=== PATIENT | female | born 1980 | race Two or more races ===

== ENCOUNTER → 2024-02-23 | Outpatient (CLI) | payer MEDICAID, SELFPAY ==
--- NOTE | 2024-02-23 16:34 | XR_ITS ---
Examination: Bilateral hands, 6 views. Technique: AP, Oblique, Lateral each hand total 6 views Date and time of exam: February 23, 2024 1658 hours INDICATIONS: Bilateral hand pain 5 months FINDINGS: Mild juxta-articular bone demineralization No fracture or dislocation involving either hand Old deformity at the base of the proximal phalanx left second digit No erosive or other significant arthritic change Minimal osteoarthritis distal interphalangeal joints Impression: No fracture or dislocation involving either hand No erosive or other significant arthritic change involving either hand
--- NOTE | 2024-02-23 16:34 | XR_ITS ---
Examination: Bilateral wrists 6 views TECHNIQUE: AP oblique lateral each wrist total 6 views Exam date and time: February 23, 2024 1702 hours INDICATIONS: Bilateral wrist pain 5 months. FINDINGS: Mild osteopenia. No fracture or dislocation involving either wrist No erosive or other significant arthritic change involving either wrist No avascular necrosis No opaque foreign bodies IMPRESSION: No fracture or dislocation involving either wrist No erosive or other significant arthritic change involving either wrist
== END | disposition home or self-care (01) ==
LOC: CDIM 16:22
DX: M79.642 Pain in left hand (principal); M79.641 Pain in right hand; M25.532 Pain in left wrist; M25.531 Pain in right wrist
CPT/HCPCS: 73110; 73130